=== PATIENT | male | born 1960 | race African-American/Black ===

== ENCOUNTER → 2017-08-04 | Outpatient (CLI) | payer SELFPAY ==
--- NOTE | 2017-08-04 15:16 | RAD ---
Examination: Portable AP chest History: Breast nodule Findings: Normal transverse heart diameter with clear lungs and pleural spaces. Impression: No acute or significant Reported By:
== END ==
LOC: RAD 14:21
PROVIDERS: ATTEND Family Medicine
DX: R22.2 Localized swelling, mass and lump, trunk (principal)
CPT/HCPCS: 71045

== ENCOUNTER 2018-12-19 12:03 | Observation (INO) ==
[2018-12-19 12:23] VITALS: BMI 34.0
--- NOTE | 2018-12-19 12:31 | DR.SOBA ---
HPI Time Seen Time Seen by Provider: 12/19/18 12:25 Primary Care Physician Primary Care Physician: naeem HPI Comment HPI Comment: PATIENT IS 58YR OLD MALE IN ED WITH INCREASING SOB AND SYNCOPAL EPISODE TIMES 2. Complaints Chief Complaint Doctors Comments: SOB, SYNCOPAL EPISODES AND RIGHT UPPR ABDOMINAL WALL SWELLING AND PAIN. Chief Complaint:: sob, syncope x 2 months but worse today Self Treatment fo Chief Complaint: ibuprofen Reviewed Nurses Notes Reviewed: Yes Source History Provided: Law Enforcement Mode of Arrival Mode of Arrival: Ambulatory Timing Onset of Chief Complaint: 12/19/18 Duration Duration: Hours Context PE Risk Factors:: None History of:: None Currently on:: Neither Prehospital Care:: None Modifying Factors Worsens:: Exertion Improves:: Sitting Up PMH PMH Past Medical History: No Past Surgical History: No Family History History of Family Medical Conditions: Yes Family Medical History: Cancer and [place] Social History Does patient currently use any type of tobacco product: No Have you used tobacco products in the last 12 months: No Type of Tobacco Use: None Does any household member use tobacco: No Alcohol Use: None Do you use any recreational Drugs:: Yes (hx of cocaine) Lives With: Other Lives Where: alf infectious screening In the last 2 months have you had wt loss of >10#?: NO Have you had fever, night sweats or hemotysis?: No Have you traveled outside the country in the last 6 months?: No Isolation: Standard ROS Review of Systems Constitutional: No Symptoms Reported Eyes: No Symptoms Reported ENTM: No Symptoms Reported Respiratoy: No Symptoms Reported Cardiovascular: No Symptoms Reported Gastrointestinal/Abdominal: No Symptoms Reported Genitourinary: No Symptoms Reported Neurological: No Symptoms Reported Musculoskeletal: No Symptoms Reported Integumentary: No Symptoms Reported Hematologic/Lymphatic: No Symptoms Reported Endocrine: No Symptoms Reported Psychiatric: No Symptoms Reported All Other Systems: Reviewed and Negative PE Vital Signs Vitals: Temperature 98.2 F Pulse Rate 69 Respiratory Rate 20 Blood Pressure 144/85 O2 Sat by Pulse Oximetry 97 General Limitations: No Limitations General Appearance: Alert and In No Apparent Distress Head Head Exam: Normal Inspection Eyes Eye exam: Normal Appearance ENT ENT Exam: Normal Exam Neck Neck Exam: Normal Inspection Chest Chest Inspection: Normal Inspection Respiratory Respiratory Exam: Normal Lung Sounds Bilat Respiratory Exam: Bilateral: Clear to Auscultation Cardiovascular Cardiovascular Exam: Regular Rate and Normal Rhythm Abdominal Exam Abdominal Exam: Normal Inspection, Normal Bowel Sounds and Soft Extremities Extremities Exam: Normal Inspection Back Back Exam: Normal Inspection Neurologic Neurological Exam: Alert and Oriented X3 Psychiatric Psychiatric Exam: Normal Affect and Normal Mood Skin Skin Exam: Warm, Dry, Intact and Normal Color ROR Labs Reviewed Laboratory Results Reviewed?: Yes Result Diagrams: 12/19/18 13:10 12/19/18 13:10 Laboratory: WBC 4.8 X10^3/uL (3.6-10.0) 12/19/18 13:10 RBC 4.86 X10^6/uL (4.7-6.0) 12/19/18 13:10 Hgb 15.8 g/dL (13.5-18.0) 12/19/18 13:10 Hct 45.6 % (42.0-54.0) 12/19/18 13:10 MCV 93.8 fL (80.0-100.0) 12/19/18 13:10 MCH 32.6 pg (27.0-34.0) 12/19/18 13:10 MCHC 34.7 g/dL (33.0-35.0) 12/19/18 13:10 RDW 13.4 % (11.6-16.5) 12/19/18 13:10 Plt Count 164 X10^3/uL (150.0-450.0) 12/19/18 13:10 MPV 10.1 fL (7.4-11.0) 12/19/18 13:10 Neut % (Auto) 38.7 % (42.0-75.0) L 12/19/18 13:10 Lymph % (Auto) 46.9 % (21.0-51.0) 12/19/18 13:10 Love % (Auto) 11.2 % (0.0-13.0) 12/19/18 13:10 Eos % (Auto) 2.7 % (0.9-2.9) 12/19/18 13:10 Baso % (Auto) 0.5 % (0.2-1.0) 12/19/18 13:10 Neut # (Auto) 1.9 x10^3/uL (2.2-4.8) L 12/19/18 13:10 Lymph # (Auto) 2.3 X10^3/uL (1.3-2.9) 12/19/18 13:10 Love # (Auto) 0.5 x10^3/uL (0.3-0.8) 12/19/18 13:10 Eos # (Auto) 0.1 x10^3/uL (0.0-0.2) 12/19/18 13:10 Baso # (Auto) 0.0 X10^3/uL (0.0-0.1) 12/19/18 13:10 Absolute Nucleated RBC 0.0 /100WBC 12/19/18 13:10 D-Dimer 243 ng/mL (0-400) 12/19/18 13:10 Sample Site Rr 12/19/18 15:15 ABG pH 7.440 (7.35-7.45) 12/19/18 15:15 ABG pCO2 42.0 mmHg (35.0-45.0) 12/19/18 15:15 ABG pO2 71.0 mmHg (80.0-100.0) L 12/19/18 15:15 ABG HCO3 28.5 mmol/L (22-26) H 12/19/18 15:15 ABG O2 Saturation 95.0 % (90-100) 12/19/18 15:15 ABG Base Excess 3.9 mmol/L (-2.0-2.0) H 12/19/18 15:15 James Test Pos 12/19/18 15:15 Blood Gas Comments Lakia well cb 12/19/18 15:15 Sodium 136 mmol/L (136-145) 12/19/18 13:10 Corrected Sodium TNP 12/19/18 13:10 Potassium 4.4 mmol/L (3.5-5.1) 12/19/18 13:10 Chloride 101 mmol/L (98-107) 12/19/18 13:10 Carbon Dioxide 26.7 mmol/L (21-32) 12/19/18 13:10 BUN 14 mg/dL (7-18) 12/19/18 13:10 Creatinine 1.36 mg/dL (0.70-1.30) H 12/19/18 13:10 Est GFR (MDRD) Af Amer > 60 (>60) 12/19/18 13:10 Est GFR (MDRD) Non-Af 57 (>60) L 12/19/18 13:10 Glucose 62 mg/dL (65-99) L 12/19/18 13:10 Calcium 9.5 mg/dL (8.5-10.1) 12/19/18 13:10 Corrected Calcium TNP 12/19/18 13:10 Total Bilirubin 0.80 mg/dL (0.2-1.0) 12/19/18 13:10 AST 40 Units/L (15-37) H 12/19/18 13:10 ALT 42 Units/L (12-78) 12/19/18 13:10 Alkaline Phosphatase 146 Units/L (46-116) H 12/19/18 13:10 Creatine Kinase 512 Units/L (39-308) H 12/19/18 13:10 CK-MB (CK-2) 1.8 ng/mL (0-4.0) 12/19/18 13:10 CK/CKMB % Calc 0.4 % (<4) 12/19/18 13:10 Troponin I < 0.02 ng/mL (0-1.5) 12/19/18 13:10 B-Natriuretic Peptide 5.1 pg/mL (0-79) 12/19/18 13:10 Total Protein 10.0 g/dL (6.4-8.2) H 12/19/18 13:10 Albumin 4.0 g/dL (3.4-5.0) 12/19/18 13:10 Globulin 6.0 g/dL (2.5-4.5) H 12/19/18 13:10 Albumin/Globulin Ratio 0.7 Ratio (1.1-2.1) L 12/19/18 13:10 Specimen Type Clean catch urine 12/19/18 15:15 Urine Color Yellow (YELLOW) 12/19/18 15:15 Urine Appearance Clear (CLEAR) 12/19/18 15:15 Urine pH 5.0 (5.0 - 8.0) 12/19/18 15:15 Ur Specific [place] 1.020 (1.000-1.030) 12/19/18 15:15 Urine Protein 1+ (NEGATIVE) 12/19/18 15:15 Urine Glucose (UA) Negative (NEGATIVE) 12/19/18 15:15 Urine Ketones Negative (NEGATIVE) 12/19/18 15:15 Urine Occult Blood 1+ (NEGATIVE) 12/19/18 15:15 Urine Nitrite Negative (NEGATIVE) 12/19/18 15:15 Urine Bilirubin Negative (NEGATIVE) 12/19/18 15:15 Urine Urobilinogen Normal (NORMAL) 12/19/18 15:15 Ur Leukocyte Esterase Negative (NEGATIVE) 12/19/18 15:15 Urine RBC 3-5 /HPF (0-3) A 12/19/18 15:15 Urine WBC None seen /HPF (0-5) 12/19/18 15:15 Ur Squamous Epith Cells Negative /HPF (NEGATIVE) 12/19/18 15:15 Urine Bacteria Trace /HPF (NEGATIVE) 12/19/18 15:15 Urine Mucus Few /HPF (NEGATIVE) 12/19/18 15:15 Urine Sperm Few /HPF (NEGATIVE) 12/19/18 15:15 Ur Culture Indicated? No/not indicated 12/19/18 15:15 Urine Opiates Screen Negative (NEG=<300) 12/19/18 15:15 Urine Methadone Screen Negative (NEG=<300) 12/19/18 15:15 Ur Barbiturates Screen Negative (NEG=<200) 12/19/18 15:15 Ur Phencyclidine Scrn Negative (NEG=<25) 12/19/18 15:15 Ur Amphetamines Screen Negative (NEG=<1000) 12/19/18 15:15 U Benzodiazepines Scrn Negative (NEG=<200) 12/19/18 15:15 Urine Cocaine Screen Negative (NEG=<300) 12/19/18 15:15 U Marijuana (THC) Screen Negative (NEG=<50) 12/19/18 15:15 XRAY XRAY Interpreted by: Radiologist XRAY Findings: REPORTS NOTED AND DISCUSSED WITH PATIENT. EKG Rate: 60 Orla: Normal Rhythm: NSR Block: None Hypertrophy: None ST: Normal Opioid Opioid Risk Tool Age (Russ box if 16-45): No History of Preadolescent Sexual Abuse: No Total: 0 Total Score Risk Category: Low Risk Copyright: Doug FERGUSON predicting aberrant behaviors Diagnosis Discharge Problem: Abdominal wall pain Syncopal episodes Qualifiers: Syncope type: unspecified Qualified Code(s): R55 - Syncope and collapse Dyspnea Qualifiers: Dyspnea type: dyspnea on exertion Qualified Code(s): R06.09 - Other forms of dyspnea Instructions Forms: Excuse From Work Patient Portal
--- NOTE | 2018-12-19 13:00 | CT ---
HISTORY: Dizziness, altered mental status Study: CT head without contrast Comparison: None Technique: Axial noncontrast images with coronal and sagittal reformats. Dose reduction procedures were used with mA/kv adjusted for body size. Findings: The ventricles are normal in size shape and position. There are no areas of abnormal attenuation to suggest recent or remote CVA, hemorrhage, mass lesion, or extra-axial fluid collection. The visualized sinuses are clear. The calvarium is intact. IMPRESSION: No significant abnormality identified Reported By:
--- NOTE | 2018-12-19 13:07 | RAD ---
HISTORY: Shortness of breath Study: Chest AP portable Comparison: 08/04/2017 Findings: The heart is within normal limits in size. The stefany are normal. The lungs are well inflated and free of acute alveolar infiltrates. No pleural effusions are identified. The bony thorax is unremarkable. IMPRESSION: No significant abnormality identified Reported By:
[2018-12-19 13:20] LABS: BASOPHILS % (AUTO) 0.5 % (0.2-1.0); EOSINOPHILS # (AUTO) 0.1 x10^3/uL (0.0-0.2); EOSINOPHILS % (AUTO) 2.7 % (0.9-2.9); HEMATOCRIT 45.6 % (42.0-54.0); HEMOGLOBIN 15.8 g/dL (13.5-18.0); LYMPHOCYTES # (AUTO) 2.3 X10^3/uL (1.3-2.9); LYMPHOCYTES % (AUTO) 46.9 % (21.0-51.0); MEAN CORPUSCULAR HEMOGLOBIN 32.6 pg (27.0-34.0); MEAN CORPUSCULAR HGB CONC 34.7 g/dL (33.0-35.0); MEAN CORPUSCULAR VOLUME 93.8 fL (80.0-100.0); MEAN PLATELET VOLUME 10.1 fL (7.4-11.0); MONOCYTES # (AUTO) 0.5 x10^3/uL (0.3-0.8); MONOCYTES % (AUTO) 11.2 % (0.0-13.0); NEUTROPHILS # (AUTO) 1.9 x10^3/uL (2.2-4.8); NEUTROPHILS % (AUTO) 38.7 % (42.0-75.0); PLATELET COUNT 164 X10^3/uL (150.0-450.0); RED BLOOD COUNT 4.86 X10^6/uL (4.7-6.0); RED CELL DISTRIBUTION WIDTH 13.4 % (11.6-16.5); WHITE BLOOD COUNT 4.8 X10^3/uL (3.6-10.0)
[2018-12-19 13:32] LABS: BLOOD UREA NITROGEN 14 mg/dL (7-18); CALCIUM 9.5 mg/dL (8.5-10.1); CARBON DIOXIDE 26.7 mmol/L (21-32); CHLORIDE 101 mmol/L (98-107); CREATININE 1.36 mg/dL (0.70-1.30); SODIUM 136 mmol/L (136-145); TROPONIN I < 0.02 ng/mL (0-1.5); eGFR NON BLACK RACES 57 (>60)
[2018-12-19 13:37] LABS: ALANINE AMINOTRANSFERASE 42 Units/L (12-78); ALKALINE PHOSPHATASE 146 Units/L (46-116); ASPARTATE AMINO TRANSFERASE 40 Units/L (15-37); CKMB % 0.4 % (<4); CREATINE KINASE 512 Units/L (39-308); CREATINE KINASE MB 1.8 ng/mL (0-4.0)
[2018-12-19 15:31] LABS: ABG ALLEN TEST POS; ABG BASE EXCESS 3.9 mmol/L (-2.0-2.0); ABG HCO3 28.5 mmol/L (22-26)
[2018-12-19 15:35] LABS: BILIRUBIN,URINE NEGATIVE (NEGATIVE); BLOOD/HEMOGLOBIN,URINE 1+ (NEGATIVE); GLUCOSE, URINE NEGATIVE (NEGATIVE); KETONES,URINE NEGATIVE (NEGATIVE); LEUKOCYTE ESTERASE ,URINE NEGATIVE (NEGATIVE); NITRITES,URINE NEGATIVE (NEGATIVE); PROTEIN,URINE 1+ (NEGATIVE); UROBILINOGEN,URINE NORMAL (NORMAL)
[2018-12-19 15:47] LABS: APPEARANCE,URINE CLEAR (CLEAR); COLOR,URINE YELLOW (YELLOW)
[2018-12-19 15:48] LABS: BACTERIA,URINE TRACE /HPF (NEGATIVE); MUCUS,URINE FEW /HPF (NEGATIVE); SPERM,URINE FEW /HPF (NEGATIVE); SQUAMOUS EPITHELIAL CELL,UR NEGATIVE /HPF (NEGATIVE)
--- NOTE | 2018-12-19 16:41 | CT ---
History: Chest pain and right abdominal mass Study: CT abdomen with 97 mL Omnipaque 350 IV contrast. Sagittal and coronal reformations were provided. Dose reduction techniques were utilized. Comparison: None Findings: There is a small calcified right hilar lymph node visualized. The visualized lung bases are clear. The spleen and pancreas and kidneys and adrenal glands are unremarkable. There is a 9 mm low-attenuation mass inferiorly and posteriorly in the right lobe of the liver. There is no ascites or adenopathy. The appendix is normal. The prostate is prominent. The urinary bladder is unremarkable. There is elevation of the base of the bladder by the enlarged prostate. The gallbladder is unremarkable. Impression: 1. Enlarged prostate elevating the base of the bladder 2. Nearly 1 cm low-attenuation lesion inferiorly and posteriorly in the right lobe of the liver, possible cyst. Reported By:
[2018-12-19] MEDS ORDERED: TORADOL 30 MG VIAL IVP PRN (18:06)
[2018-12-19] MEDS ORDERED: NS 1000 ML 1,000 ML IV SCH (18:06)
[2018-12-19 18:07] LABS: FRACTIONATED INSPIRED OXYGEN 21
[2018-12-19] MEDS ORDERED: AFLURIA II4 or FLUARIX II4 IM ONE (21:00)
[2018-12-19 21:11] LABS: CKMB % 0.3 % (<4); CREATINE KINASE 531 Units/L (39-308); CREATINE KINASE MB 1.4 ng/mL (0-4.0); TROPONIN I < 0.02 ng/mL (0-1.5)
[2018-12-20 02:38] LABS: CKMB % 0.3 % (<4); CREATINE KINASE 443 Units/L (39-308); CREATINE KINASE MB 1.2 ng/mL (0-4.0); TROPONIN I < 0.02 ng/mL (0-1.5)
[2018-12-20 06:24] LABS: EOSINOPHILS # (AUTO) 0.1 x10^3/uL (0.0-0.2); EOSINOPHILS % (AUTO) 2.4 % (0.9-2.9); HEMATOCRIT 44.5 % (42.0-54.0); HEMOGLOBIN 15.4 g/dL (13.5-18.0); LYMPHOCYTES # (AUTO) 1.3 X10^3/uL (1.3-2.9); LYMPHOCYTES % (AUTO) 31.8 % (21.0-51.0); MEAN CORPUSCULAR HEMOGLOBIN 32.4 pg (27.0-34.0); MEAN CORPUSCULAR HGB CONC 34.7 g/dL (33.0-35.0); MEAN CORPUSCULAR VOLUME 93.5 fL (80.0-100.0); MEAN PLATELET VOLUME 9.6 fL (7.4-11.0); MONOCYTES # (AUTO) 0.5 x10^3/uL (0.3-0.8); MONOCYTES % (AUTO) 10.9 % (0.0-13.0); NEUTROPHILS # (AUTO) 2.3 x10^3/uL (2.2-4.8); NEUTROPHILS % (AUTO) 53.9 % (42.0-75.0); PLATELET COUNT 165 X10^3/uL (150.0-450.0); RED BLOOD COUNT 4.76 X10^6/uL (4.7-6.0); RED CELL DISTRIBUTION WIDTH 13.2 % (11.6-16.5); WHITE BLOOD COUNT 4.2 X10^3/uL (3.6-10.0)
[2018-12-20 06:39] LABS: ALANINE AMINOTRANSFERASE 44 Units/L (12-78); ALBUMIN 3.6 g/dL (3.4-5.0); ALKALINE PHOSPHATASE 137 Units/L (46-116); ASPARTATE AMINO TRANSFERASE 36 Units/L (15-37); BLOOD UREA NITROGEN 16 mg/dL (7-18); CALCIUM 8.8 mg/dL (8.5-10.1); CARBON DIOXIDE 26.3 mmol/L (21-32); CHLORIDE 102 mmol/L (98-107); CHOL/HDL RATIO 6.4 (0.0-5.0); CHOLESTEROL 193 mg/dL (0-200); CREATININE 1.29 mg/dL (0.70-1.30); HDL CHOLESTEROL 30 mg/dL (40-60); SODIUM 135 mmol/L (136-145); TOTAL PROTEIN 9.2 g/dL (6.4-8.2); TRIGLYCERIDES 114 mg/dL (0-150); eGFR NON BLACK RACES > 60 (>60)
--- NOTE | 2018-12-20 08:57 | VAS ---
HISTORY: Syncope Study: Bilateral carotid arterial Doppler Comparison: None Technique: Multiple pulido scale as well as spectral and color flow Doppler images of the right and left carotid arterial system were obtained. The vertebral arterial system was evaluated as well. Findings: Normal color flow Doppler is seen throughout the right and left carotid arterial system. No hemodynamically significant stenosis is seen based on velocity criteria. The right and left vertebral arteries demonstrate antegrade flow. IMPRESSION: No hemodynamically significant stenosis. Reported By:
[2018-12-20] MEDS ORDERED: ASPIRIN EC 81 MG PO SCH (10:00)
[2018-12-20] MEDS ORDERED: LIPITOR TAB 10 MG PO SCH (10:00)
[2018-12-20 13:22] VITALS: BP 130/73
--- NOTE | 2018-12-20 18:55 | DR.CARTERS ---
Short Stay Summary - Discharge Medications Discharge Medications: Home Medication List NK 12/20/18 [History] aspirin 81 mg PO DAILY #30 tab 12/20/18 [Rx] atorvastatin 10 mg PO DAILY #30 tab 12/20/18 [Rx] tamsulosin 0.4 mg PO QPM #30 cap 12/20/18 [Rx] Prescriptions: aspirin IRENA,CHAR atorvastatin IRENA,CHAR tamsulosin IRENA,CHAR - Discharge Plan Disposition: HOME, SELF-CARE Condition: Stable Prescriptions: aspirin 81 mg PO DAILY #30 tab atorvastatin 10 mg PO DAILY #30 tab tamsulosin 0.4 mg PO QPM #30 cap - Follow up/Referrals Follow up/Referrals: Kristin MUJICA MD. [Other] - 1 WEEK NFD,None [Primary Care Provider] - 3 days - Instructions Instructions: Aspirin and Your Heart, Chest Wall Pain, [id number], Heart Attack, [id number], Prostate Cancer Screening Additional Instructions: recommend outpt cardiac work up recommend urology evaluation for enlarged prostate started on aspirin, statin, flomax gi follow up for evaluation of epigastric pain and liver cyst hydrate, water Forms: Excuse From Work or School, Excuse From Work, Patient Portal
[2018-12-20] MEDS ORDERED: FLOMAX PO SCH (21:00)
== END 2018-12-20 14:15 | disposition home or self-care (01) ==
LOC: ER 12:03 → ICU 12:03
PROVIDERS: ADMIT Internal Medicine; ATTEND Internal Medicine
DX: M62.82 Rhabdomyolysis; K76.9 Liver disease, unspecified; R55 Syncope and collapse; R41.82 Altered mental status, unspecified; R42 Dizziness and giddiness; E78.2 Mixed hyperlipidemia; Z23 Encounter for immunization; R10.31 Right lower quadrant pain; N40.0 Benign prostatic hyperplasia without lower urinary tract symptoms; R06.02 Shortness of breath
CPT/HCPCS: 36415; 36600; 70450; 71010; 71045; 74177; 80053; 80061; 80307; 81001; 82550; 82553; 82803; 83735; 83880; 84153; 84484; 85025; 85378; 90674; 90686; 93005; 93880; 96365; 96374; 99284; A4222; G0378; G0434; J1885; J7030